=== PATIENT | male | born 1975 | race Caucasian/White ===

== ENCOUNTER 2016-07-03 13:12 | Emergency (ER) | payer OTHER ==
[~2016-07-03] VITALS: Ht 185.4 cm; Wt 84.1 kg
[2016-07-03 13:14] VITALS: BP 162/93; PULSE 103; RESP 18; O2SAT 100
--- NOTE | 2016-07-03 13:36 | ED.REPORT ---
HPI-Abd Pain M 40 and Over Date of Service Jul 03, 2016 ED Provider: History of Present Illness: driving to [place] and sudden onset of left mid abd pain. came here. no blood in urine. primary care is [facility] in [facility]. normally healthy, nausea, no vomiting. 7 to 8. Nursing Notes Stated Complaint: SEVERE ABDOMINAL PAIN Chief Complaint: Male Abdominal Pain Nursing Notes Reviewed: Yes Allergies: Coded Allergies: No Known Allergies (Unverified , 07/03/16) General Time Seen by MD: 13:35 Chief Complaint Abdominal pain Hx Obtained From: Patient Sudden in Onset?: Yes Past Medical History Past Medical History Denies: Asthma, Diabetes mellitus (joint surgerues), Hypertension Past Surgical History denies Smoking History Never Smoker Social History Alcohol Use: "Social" Drug Use: Denies drug use Other Social History: Occupation work at [employer] 06/23/2016 Ambulatory Status Independent Review of Systems Basic Review of Systems Eyes: Vision NL, No discharge ENT: Hearing NL, No pain, No nasal congestion, No pharyngeal pain Hematologic: No bleeding, No bruising Endocrine: No cold intolerance, No heat intolerance, No weight gain, No weight loss Skin: No bruising, No rash, No itch Allergy / Immune: No allergy Neurologic: NL mental status, No weakness, No numbness Psychiatric: Normal thought content Physical Exam Initial Vital Signs Vital Signs (First) Date Time Temp Pulse Resp B/P Pulse Ox O2 Delivery O2 Flow Rate FiO2 07/03/16 13:14 36.5 103 18 162/93 100 Room Air Initial VS: Reviewed, Vital signs abnormal Head / Eyes: Atraumatic, Normocephalic, PERRL ENT: Mucous membranes moist, Conjunctiva normal, No scleral icterus Neck: Supple, Non-tender, Full range of motion Lymphatic: No lymphadenopathy Extremities: Vascular intact, Neuro intact, No swelling, No tenderness Skin: Warm, Dry, No cyanosis Neurologic: Alert, Oriented, Nonfocal Psychiatric: Mood/affect normal, Behavior normal, Normal thought content General/Constitutional: Awake, Alert, No acute distress, Well appearing, Well developed, Well hydrated Respiratory / Chest: Atraumatic, Breath sounds NL, Breath sounds = bilat, No respiratory distress Cardiovascular: Heart rate NL, Regular rhythm, Heart sounds NL, No gallop left mid abd pain to palpation Back: Atraumatic, Inspection NL, Full range of motion Flank / Spine / Paraspinal: Positive: Flank tender L Head / Eyes: Atraumatic, Normocephalic, PERRL ENT: Atraumatic, Airway patent, Mucous membranes moist Skin: Atraumatic, Color NL, No rash Interpretation & Diagnostics Lab Results Interpretation Result Diagram: 07/03/16 1400 07/03/16 1400 Test 07/03/16 14:00 07/03/16 14:02 White Blood Count 6.0th/mm3 (3.8-10.1) Red Blood Count 5.08mil/mm3 (4.40-5.80) Hemoglobin 15.1g/dL (13.8-17.2) Hematocrit 43.6% (41.0-50.0) Mean Corpuscular Volume 85.8fL (81-100) Mean Corpuscular Hemoglobin 29.7pg (27.0-35.0) Mean Corpuscular Hemoglobin Concent 34.6% (32.0-37.0) Red Cell Distribution Width 12.7% (12.3-15.4) Platelet Count 238bil/L (150-400) Neutrophils (%) (Auto) 57.3% (40-74) Lymphocytes (%) (Auto) 30.5% (14-46) Monocytes (%) (Auto) 7.1% (4-12) Eosinophils (%) (Auto) 4.8% (0-5) Basophils (%) (Auto) 0.3% (0-3) Sodium Level 139mEq/L (134-144) Potassium Level 3.4mEq/L (3.5-5.2) Chloride Level 100mEq/L (97-108) Carbon Dioxide Level 19mmol/L (18-29) Blood Urea Nitrogen 18mg/dL (6-24) Creatinine 0.92mg/dL (0.76-1.27) Estimat Glomerular Filtration Rate 97mL/min (>59) Glucose Level 146mg/dL (60-99) Calcium Level 9.6mg/dL (8.5-10.1) Total Bilirubin 0.5mg/dL (0.0-1.2) Aspartate Amino Transf (AST/SGOT) 21U/L (0-50) Alanine Aminotransferase (ALT/SGPT) 49U/L (0-44) Alkaline Phosphatase 56U/L (25-150) Total Protein 8.0g/dL (6.4-8.4) Albumin 4.3g/dL (3.4-5.0) Urine Color Yellow (YELLOW) Urine Appearance Hazy (CLEAR,HAZY) Urine pH 6.0 (5.0-8.0) Urine Specific Oakley 1.025 (1.003-1.035) Urine Protein Negativemg/dL (NEG,TRACE) Urine Glucose (UA) Negativemg/dL (NEGATIVE) Urine Ketones Tracemg/dL (NEGATIVE) Urine Occult Blood Small (NEGATIVE) Urine Nitrite Negative (NEGATIVE) Urine Bilirubin Negative (NEGATIVE) Urine Urobilinogen Normalmg/dL (NORMAL) Urine Leukocyte Esterase Negative (NEGATIVE) Urine RBC 11-50/hpf (0-2) Urine WBC 0-5/hpf (0-5) Urine Epithelial Cells Few/hpf (NONE-MOD) Urine Crystals None seen (NONE SEEN) Urine Bacteria Few/hpf (NONE-FEW) Urine Hyaline Casts None/lpf (NONE) Urine Granular Casts None seen (NONE SEEN) Urine Waxy Casts None seen (NONE SEEN) Urine Red Blood Cell Casts None seen (NONE SEEN) Urine White Blood Cell Casts None seen (NONE SEEN) Urine Mucus Present (None Seen) Urine Trichomonas None seen (NONE SEEN) Urine Yeast None (NONE SEEN) Urinalysis Comment None Urine Culture Reflexed Not indicated Lab Results Interpretation: urine with trace blood Re-Eval/Medical Decision Med Decision/Clinical Course On recheck patient reports all symptoms have resolved. He is pain free and nausea free. Discharge & Departure Primary Impression: Ureteral calculus Disposition: Home Vital Signs - All Vital Signs Date Time Temp Pulse Resp B/P Pulse Ox O2 Delivery O2 Flow Rate FiO2 07/03/16 16:54 36.9 105 15 144/85 99 Room Air 07/03/16 13:14 36.5 103 18 162/93 100 Room Air Additional Instructions: The orginal CT showed mild enlargement of the left ureter. It also showed a 3 by 4 mm phlebolith. It was not clear if there was that large of a stone in the ureter or the phlebolith was causing some problems. The study with the contrast showed the dye went all the way through the ureter. The phlebolith which is common in the pelvis area and is usually a calcification in a vein has been there for a long time. The contrast showed that there is mild enlargement of the ureter. It is likely you passed the stone. You felt much better with your pain and nausea resolving. Please strain your urine. It would also be a good idea just to follow with urology in the next 2 weeks . If you collect the stone , please place it in the container you have been provided. If you have any changes or the pain returns, return to the ER. I am glad you are doing better. Referrals: Carla Davis MD EDSupervising Provider for APC: Matthew Bustos MD copies to: Carla Davis MD, Sue ARNP Jul 03, 2016 13:36
[2016-07-03] MEDS ORDERED: Ondansetron 2 mg/mL 2 mL Inj IVPUSH ONE (13:45)
[2016-07-03] MEDS ORDERED: HYDROmorphone 0.5 mg/0.5 mL iSecure Syringe IVPUSH ONE (13:45)
[2016-07-03] MEDS ORDERED: 0.9% Sodium Chloride 1,000 ML IV ONE ×2 (13:45→15:15)
[2016-07-03 14:21] LABS: BASOPHILS % (AUTO) 0.3 % (0-3); EOSINOPHILS % (AUTO) 4.8 % (0-5); MONOCYTES % (AUTO) 7.1 % (4-12); Mean Corpuscular Hemoglobin 29.7 pg (27.0-35.0); Mean Corpuscular Volume 85.8 fL (81-100); NEUTROPHILS % (AUTO) 57.3 % (40-74); Platelet Count 238 bil/L (150-400)
--- NOTE | 2016-07-03 14:32 | DRSVH ---
PROCEDURE: CT KUB ([id number]) INDICATIONS: left flank/mid abd pain TECHNIQUE: Noncontrast 5 mm thick sections acquired from the diaphragms to the symphysis. 5 mm thick coronal an d sagittal reformats were then performed. For radiation dose reduction, the following was used: aut omated exposure control, adjustment of mA and/or kV according to patient size. COMPARISON: None. FINDINGS: Image quality: Excellent. Lung bases: Lung bases are clear. Heart size is normal. Urinary system: Both kidneys are normal in size. No kidney stones. No definite hydronephrosis or p erinephric fat stranding, but the proximal left ureter and the ureter on the left along its course is slightly more prominent in caliber than the right ureter. At the far distal margin of the course of the left ureter there is a calcific radiodensity, measuring approximately 3 x 4 mm, and if this in f act represented a distal ureteral stone a greater degree of hydronephrosis and hydroureter generally would be produced. The right ureter appears non-dilated throughout its expected course. Incidental noted is made of a 1.4 cm anterior left renal cysts, without adjacent edema. Bladder wall thickness is normal; no calcified bladder stones. Other solid organs: Liver and spleen are normal in size. Gallbladder appears normal. Pancreas is n ormal in contours. No adrenal nodules. Peritoneum and bowel: Unenhanced bowel loops demonstrate normal wall thickness and caliber. No free fluid or air. Nodes and vessels: No retroperitoneal or mesenteric adenopathy by size criteria. Aorta and inferior vena cava are normal in caliber. Abdominal wall: No ventral hernias. Pelvis: No free pelvic fluid. No inguinal hernias or adenopathy. Bones: No suspicious bony lesions. No vertebral body compression fractures. IMPRESSION: Virtually at the expected position of the far distal left ureter there is a 3 x 4 mm rosibel cific radiodensity that conceivably could represent a distal ureteral stone but a stone of that size generally wouldn't be associated with appreciably greater ureteral and renal collecting system dilata tion on the left. The exact course of the distal left ureter in relationship to this calcification could be obtained ut ilizing contrast enhanced delayed scanning. Statistically that calcification likely is a phlebolith rather than a far distal ureteral stone. There are no comparisons for review, and that small calcifi cation appears visible on the equivalent of plain film imaging (the CT scanogram). Dictated by: Casper Villegas M.D. on 07/03/2016 at 14:30 Approved by: Casper Villegas M.D. on 07/03/2016 at 14:30
[2016-07-03 14:39] LABS: APPEARANCE,URINE HAZY (CLEAR,HAZY); COLOR,URINE YELLOW (YELLOW); OCCULT BLOOD,URINE SMALL (NEGATIVE); UROBILINOGEN,URINE NORMAL (NORMAL)
--- NOTE | 2016-07-03 15:59 | DRSVH ---
PROCEDURE: CT ABDOMEN AND PELVIS WITH CONTRAST ([id number]) INDICATIONS: contrast for left distal urterer TECHNIQUE: After the administration of intravenous contrast, 5 mm thick sections acquired from the diaphragm to the symphysis. 5 mm coronal and sagittal reformats were acquired. For radiation dose reduction, the following was used: automated exposure control, adjustment of mA and/or kV according to patient anton huston. COMPARISON: [facility], CT, CT KUB, 07/03/2016, 14:08. FINDINGS: Image quality: Excellent. ABDOMEN: Lung bases: Lung bases are clear. Heart size is normal. Solid organs: Liver and spleen are normal in size and enhancement. Gallbladder appears normal. Alvaro iary system is non dilated. Pancreas enhances normally. No adrenal nodules. Kidneys demonstrate no rmal size and enhancement, without hydronephrosis. Peritoneum and bowel: Bowel loops demonstrate normal wall thickness and caliber. No free fluid or a ir. Nodes and vessels: No retroperitoneal or mesenteric adenopathy by size criteria. Aorta and inferior vena cava are normal in size. Miscellaneous: No ventral hernias. PELVIS: Genitourinary: Bladder wall thickness is normal. The far distal ureter isn't very well-visualized b y contrast excretion bilaterally, and this study documents that the far distal left ureter passes imm ediately above, virtually in apposition to, and extra ureteral phlebolith before the ureter enters th e bladder margin. Miscellaneous: No inguinal hernias or adenopathy. Bones: No suspicious bony lesions. No vertebral body compression fractures. IMPRESSION: The small calcification of concern from CT KUB earlier today represents a phlebolith and the far distal ureter on the left crosses immediately above the upper margin of this phlebolith but without impingement by the phlebolith. A source of current symptoms is not found. Dictated by: Casper Villegas M.D. on 07/03/2016 at 15:58 Approved by: Casper Villegas M.D. on 07/03/2016 at 15:58
[2016-07-03 16:54] VITALS: BP 144/85; PULSE 105; RESP 15; O2SAT 99
== END 2016-07-03 16:50 | disposition home or self-care (01) ==
LOC: SED 13:12
DX: N20.1 Calculus of ureter (principal); I87.8 Other specified disorders of veins
CPT/HCPCS: 36415; 74176; 74177; 80053; 81000; 85025; 96374; 96375; 99285; J2405; J7030; Q9967